=== PATIENT | female | born 1955 | race Caucasian/White ===

== ENCOUNTER → 2017-01-29 | Outpatient (CLI) | payer MEDICARE, OTHER ==
[~2017-01-29] VITALS: Ht 157.5 cm; Wt 100.7 kg
[~2017-01-29] MED LIST: ASPI81TA85 PO; BUSP1TAB PO; D3 22000 PO; LIDOCAINE 2% INJ 100 MG/5 ML SDV (FOR ANES.) As Ordered ONE; LOSA50TA20 PO; MIRA3350 PO; NEXI40CA PO; NS 1,000 ML IV ONE; PROPOFOL 200 MG/20 ML VIAL As Ordered ONE; STOO240C PO; TRAM50TA2 PO; ZETI10TA2 PO; [UNRECOGNIZED DRUG - OTHER] PO
--- NOTE | 2017-01-29 10:49 | ROOR ---
Patient Name: Iraida Tapia Procedure Date: 01/29/2017 10:38 AM Date of : 1955 Age: 61 Room: [facility] Gender: Female Note Status: Finalized Procedure: Upper GI endoscopy Indications: Epigastric abdominal pain, Abnormal CT of the GI tract Providers: Lupillo Hong MD Referring MD: YANG JEWELL DO Requesting Provider: Medicines: Monitored Anesthesia Care Complications: No immediate complications. Procedure: Pre-Anesthesia Assessment: - The heart rate, respiratory rate, oxygen saturations, blood pressure, adequacy of pulmonary ventilation, and response to care were monitored throughout the procedure. The Endoscope was introduced through the mouth, and advanced to the second part of duodenum. The upper GI endoscopy was accomplished without difficulty. The patient tolerated the procedure well. Findings: The Z-line was regular and was found 40 cm from the incisors. No other significant abnormalities were identified in a careful examination of the stomach. The exam of the duodenum was otherwise normal. Impression: - Z-line regular, 40 cm from the incisors. - No specimens collected. - The examination was otherwise normal. Recommendation: - Patient has a contact number available for emergencies. The signs and symptoms of potential delayed complications were discussed with the patient. Return to normal activities tomorrow. Written discharge instructions were provided to the patient. - High fiber diet. - Discharge patient to home. - Continue present medications. - Return to referring physician. - The findings and recommendations were discussed with the patient's family. Lupillo Hong MD Lupillo Hong MD 01/29/2017 10:48:37 AM This report has been signed electronically. Number of Addenda: 0 Note Initiated On: 01/29/2017 10:38 AM Estimated Blood Loss: Estimated blood loss: none.
[2017-01-29 11:20] VITALS: BP 155/84
== END | disposition home or self-care (01) ==
LOC: M OPP 09:58
PROVIDERS: ATTEND Internal Medicine Gastroenterology
DX: R93.3 Abnormal findings on diagnostic imaging of other parts of digestive tract (principal); R10.13 Epigastric pain; I10 Essential (primary) hypertension; R12 Heartburn; R23.3 Spontaneous ecchymoses; K21.9 Gastro-esophageal reflux disease without esophagitis; M19.90 Unspecified osteoarthritis, unspecified site; M54.9 Dorsalgia, unspecified; F41.9 Anxiety disorder, unspecified; K76.0 Fatty (change of) liver, not elsewhere classified; Z88.8 Allergy status to other drugs, medicaments and biological substances; Z88.0 Allergy status to penicillin; Z88.2 Allergy status to sulfonamides; Z91.048 Other nonmedicinal substance allergy status; Z91.041 Radiographic dye allergy status; Z79.82 Long term (current) use of aspirin; Z79.899 Other long term (current) drug therapy; Z98.84 Bariatric surgery status; Z83.71 Family history of colonic polyps; Z87.891 Personal history of nicotine dependence